=== PATIENT | female | born 1965 | race Caucasian/White ===

== ENCOUNTER → 2025-09-18 | Outpatient (CLI) | payer OTHER, SELFPAY ==
--- NOTE | 2025-09-18 | CYSPIN_PTH ---
PATIENT: BARBARA CAMPBELL LOC: [facility] U#:[id number] AGE/SX: 60/F ROOM: RE09/18/[address]: Dr. Kenny Segovia MD : 1965 BED: DIS: 09/18/2025 SPEC #: [id number] RECD: 09/18/25 16:00 STATUS: VILMA BELGICA #: [id number] ANDRE: 09/18/25 00:[address]: Kenny Segovia DEPT: CYTOLOGY RECD BY: Ruslan Parsons ENTERED: 09/19/25 08:56 SP TYPE: CYSPIN FL OTHR DR: Dr. 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 Urine, nos (cytospin): - No malignant cells identified. - Predominantly squamous cells present with mild acute inflammation. CYTOLOGY STUDY Slides are reviewed. CYTOLOGY GROSS A. Received is 60 ml of light-yellow cloudy fluid labeled with the patient's name and and designated per the requisition as urine. Submitted for cytology preparation. Mr 09/19/2025 CPT: 61695
[2025-09-18 18:07] LABS: Cytology, Body Fluid / CSF SEE PATHOLOGY REPORT
== END | disposition home or self-care (01) ==
LOC: LABSPEC 16:03
PROVIDERS: PCP Family Medicine; Referring Provider Urology; Visit Provider Urology
DX: C67.3 Malignant neoplasm of anterior wall of bladder (principal)
CPT/HCPCS: 88108; 88313